=== PATIENT | female | born 1995 | race American Indian/Alaskan Native ===

== ENCOUNTER 2018-12-18 23:05 | Emergency (ER) | payer SELFPAY ==
[2018-12-18 23:36] VITALS: BP 117/66
[2018-12-19] MEDS ORDERED: ZOFRAN ODT PO ONE (00:56)
--- NOTE | 2018-12-19 01:02 | Emergency Department Report ---
ED General Adult HPI - General Chief complaint: Neck Pain/Injury Stated complaint: EMESIS/NECK SWELLING Time Seen by Provider: 12/19/18 00:46 Source: patient Mode of arrival: Ambulatory Limitations: No Limitations - History of Present Illness Initial comments: Patient is a 23-year-old [place] female who is presenting with nausea and vomiting today. Patient states that she took a penicillin pill from someone because of her month-long neck swelling. Patient states she became nauseous after taking penicillin. Patient had 2-3 episodes of vomiting which is now resolved. Patient states her nausea is minimal at this time. Patient states her neck is been swollen for approximately 2 months. As the anterior neck and the swelling has been gradual. Patient denies any chest pain shortness of breath fevers chills or difficulty swallowing. Patient's swelling is an area of her thyroid. Patient denies any palpitations. - Related Data Previous Rx's Medication Instructions Recorded Last Taken Type Ferrous Sulfate [Iron 325 MG] 325 mg PO DAILY #30 tablet 03/24/18 Unknown Rx Ondansetron [Zofran Odt] 4 mg PO Q8HR #10 tab.rapdis 12/19/18 Unknown Rx Allergies Allergy/AdvReac Type Severity Reaction Status Date / Time No Known Allergies Allergy Verified 03/24/18 05:04 ED Review of Systems ROS: Stated complaint: EMESIS/NECK SWELLING Other details as noted in HPI Comment: All other systems reviewed and negative ED Past Medical Hx - Past Medical History Previous Medical History?: No - Surgical History Past Surgical History?: No - Social History Smoking Status: Never Smoker Substance Use Type: None - Medications Home Medications: Home Medications Medication Instructions Recorded Confirmed Last Taken Type Ferrous Sulfate [Iron 325 MG] 325 mg PO DAILY #30 tablet 03/24/18 Unknown Rx Ondansetron [Zofran Odt] 4 mg PO Q8HR #10 tab.rapdis 12/19/18 Unknown Rx ED Physical Exam - General Limitations: No Limitations General appearance: alert, in no apparent distress - Head Head exam: Present: atraumatic, normocephalic - Eye Eye exam: Present: normal appearance - ENT ENT exam: Present: mucous membranes moist - Neck Neck exam: Present: normal inspection, thyromegaly - Respiratory Respiratory exam: Present: normal lung sounds bilaterally. Absent: respiratory distress, wheezes, rales, rhonchi - Cardiovascular Cardiovascular Exam: Present: regular rate, normal rhythm, normal heart sounds. Absent: systolic murmur, diastolic murmur, rubs, gallop - GI/Abdominal GI/Abdominal exam: Present: soft, normal bowel sounds. Absent: distended, tenderness, guarding, rebound - Extremities Exam Extremities exam: Present: normal inspection - Back Exam Back exam: Present: normal inspection - Neurological Exam Neurological exam: Present: alert, oriented X3 - Psychiatric Psychiatric exam: Present: normal affect, normal mood - Skin Skin exam: Present: warm, dry, intact, normal color. Absent: rash ED Course Vital Signs 12/18/18 23:34 Temperature 98.9 F Pulse Rate 104 H Respiratory 18 Rate Blood Pressure 117/66 O2 Sat by Pulse 99 Oximetry ED Medical Decision Making - Medical Decision Making He should likely with some mild gastritis secondary to taking the penicillin. Patient states that she took the penicillin because of the swelling in her neck that progressively worsening over the last 2 months. Patient has a goiter that is present. Patient will be given follow-up with primary care physician. 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 Patient will need a ultraSOUND of the thyroid with possible biopsy. Patient will be discharged home. Critical care attestation.: If time is entered above; I have spent that time in minutes in the direct care of this critically ill patient, excluding procedure time. ED Disposition Clinical Impression: Goiter Gastritis Qualifiers: Gastritis type: unspecified gastritis Chronicity: acute Gastritis bleeding: without bleeding Qualified Code(s): K29.00 - Acute gastritis without bleeding Disposition: -01 TO HOME OR SELFCARE Is pt being admited?: No Does the pt Need Aspirin: No Condition: Stable Instructions: Thyroid Goiter (ED), Acute Nausea and Vomiting (ED) Additional Instructions: Your nausea was likely secondary to taking penicillin which sometimes can cause some stomach irritation. Please follow-up with her primary care for further evaluation of the swelling of your neck which is likely a swollen thyroid. You'll need an ultrasound of your thyroid and possible biopsy. Referrals: LOLA CROSS MD [Staff Physician] - 3-5 Days Time of Disposition: :
== END 2018-12-19 01:10 | disposition home or self-care (01) ==
LOC: ED 23:05
DX: K29.00 Acute gastritis without bleeding (principal); E04.9 Nontoxic goiter, unspecified
CPT/HCPCS: 99282; Q0162